=== PATIENT | female | born 1980 ===

== ENCOUNTER 2022-05-05 12:41 | Outpatient (CLI) | payer OTHER ==
[~2022-05-05 12:41] MED LIST: OBSTETRIX DHA1 EACH
== END 2022-05-05 12:48 | disposition home or self-care (01) ==
LOC: MAMO-SONO 12:41
PROVIDERS: ATTEND Obstetrics & Gynecology
DX: Z12.31 Encounter for screening mammogram for malignant neoplasm of breast (principal); N60.11 Diffuse cystic mastopathy of right breast; N60.12 Diffuse cystic mastopathy of left breast